=== PATIENT | female | born 1940 | race Caucasian/White ===

== ENCOUNTER 2017-01-20 07:49 | Inpatient (IN) | payer MEDICARE ==
[2017-01-20] MEDS ORDERED: VITAMIN C500 M3 PO (08:55)
[2017-01-20] MEDS ORDERED: LIPITOR20 M1 PO (08:55)
[2017-01-20] MEDS ORDERED: AZELASTINE137 MCG/01 (08:56)
[2017-01-20] MEDS ORDERED: POLYSPORIN OI28.3 GM (08:57)
[2017-01-20] MEDS ORDERED: TUMS200 MG PO (08:58)
[2017-01-20] MEDS ORDERED: BUSPIRONE HCL10 M2 PO (08:58)
[2017-01-20] MEDS ORDERED: BISACODYL5 M1 PO (08:58)
[2017-01-20] MEDS ORDERED: CELEXA10 M1 PO (08:59)
[2017-01-20] MEDS ORDERED: PARAFON FORTE500 M1 PO (08:59)
[2017-01-20] MEDS ORDERED: VITAMIN D31000 UNI3 PO (08:59)
[2017-01-20] MEDS ORDERED: COLACE100 M1 PO (09:00)
[2017-01-20] MEDS ORDERED: LANOXIN250 MC2 PO (09:00)
[2017-01-20] MEDS ORDERED: ADVAIR 25028 BLISTE1 PO (09:01)
[2017-01-20] MEDS ORDERED: LASIX40 M1 PO (09:01)
[2017-01-20] MEDS ORDERED: FLUDROCORTISON0.1 M1 (09:01)
[2017-01-20] MEDS ORDERED: SYNTHROID100 MC1 PO (09:02)
[2017-01-20] MEDS ORDERED: TOPROL XL50 M1 PO (09:02)
[2017-01-20] MEDS ORDERED: CENTRUM SILVER1 EAC4 PO (09:03)
[2017-01-20] MEDS ORDERED: MIDODRINE HCL5 M1 PO (09:03)
[2017-01-20] MEDS ORDERED: AFRIN30 ML (09:03)
[2017-01-20] MEDS ORDERED: MIRALAX17 G2 PO (09:04)
[2017-01-20] MEDS ORDERED: PROTONIX40 M2 PO (09:04)
[2017-01-20] MEDS ORDERED: METAMUCIL FIBE3.4 G1 PO (09:05)
[2017-01-20] MEDS ORDERED: POTASSIUM CHLO20 ME3 PO (09:05)
[2017-01-20] MEDS ORDERED: OCEAN104 ML (09:06)
[2017-01-20] MEDS ORDERED: ULTRAM50 M1 PO (09:06)
[2017-01-20] MEDS ORDERED: COUMADIN3 M1 PO (09:07)
[2017-01-20] MEDS ORDERED: AMBIEN10 M1 PO (09:08)
[2017-01-20] MEDS ORDERED: COUMADIN4 M1 PO (09:08)
[2017-01-20] MEDS ORDERED: LEVAQUIN500 M1 IV (09:09)
[2017-01-21 05:36] LABS: BASO % 0.3 % (0-2); EOS % 0.2 % (0-7); HCT-HEMATOCRIT 39.4 % (34.0-49.0); HGB-HEMOGLOBIN 12.8 gm/dl (12.0-15.5); IMMATURE GRANULOCYTES ABSOLUTE 0.03 tho/cmm (0-0.03); IMMATURE GRANULOCYTES PERCENT 0.2 % (0-0.3); LYMPH ABSOLUTE COUNT 1.2 tho/cmm (0.8-4.5); MCH (MEAN CORPUSCULAR HGB) 30.7 pg (28.0-32.0); MCHC MEAN CORPUSCULAR HGB CONC 32.5 % (32.0-36.0); MCV (MEAN CELL VOLUME) 94.5 fl (82.0-96.0); MEAN PLATELET VOLUME 11.2 cmc (9.4-12.4); MONO % 5.1 % (0-12); MONOCYTE ABSOLUTE COUNT 0.7 tho/cmm (0.0-1.2); NEUTROPHIL ABSOLUTE COUNT 10.9 tho/cmm (1.6-8.0); NEUTROPHIL-AUTOMATED 10.9 tho/cmm (1.6-8.0); NEUTROPHILS % 85.2 % (40-80); PLATELET COUNT 189 tho/cmm (150-450); RED BLOOD COUNT 4.17 mil/cmm (4.00-5.20); WHITE BLOOD COUNT 12.8 tho/cmm (4.0-10.0)
[2017-01-21 05:42] LABS: INR 1.3 INR (0.9-1.1); PROTHROMBIN TIME 15.4 SECONDS (9.0-13.6)
[2017-01-21 05:55] LABS: ALB/GLOB RATIO 0.9 (0.8-2.0); ALBUMIN 2.9 g/dl (3.5-5.0); ALKALINE PHOSPHATASE 96 U/L (33-138); ALT/SGPT 26 U/L (12-78); ANION GAP 12 mmol/L (0-20); AST/SGOT 31 U/L (10-40); BILIRUBIN,DIRECT 0.6 mg/dl (0.0-0.3); BILIRUBIN,INDIRECT 3.4 mg/dL (0.0-1.0); BLOOD UREA NITROGEN 13 mg/dl (6-24); CALCIUM 7.9 mg/dl (8.5-10.5); CARBON DIOXIDE-VENOUS 28 mmol/L (22-32); CHLORIDE 102 mmol/l (96-110); CREATININE 0.98 mg/dl (0.50-1.10); GLUCOSE 101 mg/dL (70-110); POTASSIUM 3.4 mmol/L (3.7-5.1); SODIUM 139 mmol/L (135-145); eGFR VALUE FOR BLACK 64 mL/Min
[2017-01-22 05:46] LABS: BASO % 0.3 % (0-2); EOS % 1.9 % (0-7); EOSINOPHIL ABSOLUTE COUNT 0.2 tho/cmm (0.0-0.7); HCT-HEMATOCRIT 37.1 % (34.0-49.0); HGB-HEMOGLOBIN 11.9 gm/dl (12.0-15.5); IMMATURE GRANULOCYTES ABSOLUTE 0.02 tho/cmm (0-0.03); IMMATURE GRANULOCYTES PERCENT 0.2 % (0-0.3); INR 1.5 INR (0.9-1.1); LYMPH % 9.2 % (20-45); LYMPH ABSOLUTE COUNT 0.9 tho/cmm (0.8-4.5); MCH (MEAN CORPUSCULAR HGB) 30.4 pg (28.0-32.0); MCHC MEAN CORPUSCULAR HGB CONC 32.1 % (32.0-36.0); MCV (MEAN CELL VOLUME) 94.9 fl (82.0-96.0); MEAN PLATELET VOLUME 11.2 cmc (9.4-12.4); MONO % 6.2 % (0-12); MONOCYTE ABSOLUTE COUNT 0.6 tho/cmm (0.0-1.2); NEUTROPHIL ABSOLUTE COUNT 8.2 tho/cmm (1.6-8.0); NEUTROPHIL-AUTOMATED 8.2 tho/cmm (1.6-8.0); NEUTROPHILS % 82.2 % (40-80); PLATELET COUNT 169 tho/cmm (150-450); PROTHROMBIN TIME 17.1 SECONDS (9.0-13.6); RED BLOOD COUNT 3.91 mil/cmm (4.00-5.20); RED CELL DISTRIBUTION WIDTH 14.3 % (12.4-16.4); WHITE BLOOD COUNT 9.9 tho/cmm (4.0-10.0)
[2017-01-22 06:06] LABS: ALB/GLOB RATIO 0.8 (0.8-2.0); ALBUMIN 2.5 g/dl (3.5-5.0); ALT/SGPT 24 U/L (12-78); ANION GAP 14 mmol/L (0-20); AST/SGOT 26 U/L (10-40); BILIRUBIN,TOTAL 3.9 mg/dl (0-1.5); BLOOD UREA NITROGEN 18 mg/dl (6-24); CALCIUM 7.7 mg/dl (8.5-10.5); CARBON DIOXIDE-VENOUS 26 mmol/L (22-32); CHLORIDE 102 mmol/l (96-110); GLUCOSE 87 mg/dL (70-110); POTASSIUM 3.5 mmol/L (3.7-5.1); SODIUM 138 mmol/L (135-145)
[2017-01-22 06:11] LABS: ALKALINE PHOSPHATASE 145 U/L (33-138); BILIRUBIN,DIRECT 1.5 mg/dl (0.0-0.3); BILIRUBIN,INDIRECT 2.4 mg/dL (0.0-1.0); eGFR VALUE FOR BLACK 46 mL/Min
--- NOTE | 2017-01-22 20:12 | NUR ---
RILEY LI NOTE-VISITED WITH PATIENT SHE LAY IN BED COMFORTABLE. SHE COULD HEAR ME BUT NOT SEE ME ON THE SCREEN. PAIN IS STAYING CONTROLLED AND WE TALKED ABOUT A FUTURE GALLBLADDER SURGERY WHEN INFECTION HAS SUBSIDED. ENC PATIENT TO REPOSITION IN BED FREQUENTLY TO PREVENT BED SORES, TO ASK FOR ASSISTANCE BEFORE GETTING UP AND TO COUGH AND DEEP BREATH. SHE HAD NO QUESTIONS OR CONCERNS. PAGED AID TO HELP HER TO THE BATHROOM
[2017-01-23 06:17] LABS: ALB/GLOB RATIO 0.7 (0.8-2.0); ALBUMIN 2.3 g/dl (3.5-5.0); ALKALINE PHOSPHATASE 196 U/L (33-138); ALT/SGPT 22 U/L (12-78); ANION GAP 13 mmol/L (0-20); AST/SGOT 26 U/L (10-40); BILIRUBIN,DIRECT 1.6 mg/dl (0.0-0.3); BILIRUBIN,INDIRECT 1.6 mg/dL (0.0-1.0); BILIRUBIN,TOTAL 3.2 mg/dl (0-1.5); BLOOD UREA NITROGEN 17 mg/dl (6-24); CALCIUM 7.7 mg/dl (8.5-10.5); CARBON DIOXIDE-VENOUS 25 mmol/L (22-32); CHLORIDE 102 mmol/l (96-110); CREATININE 1.13 mg/dl (0.50-1.10); GLUCOSE 91 mg/dL (70-110); POTASSIUM 3.6 mmol/L (3.7-5.1); SODIUM 136 mmol/L (135-145); eGFR VALUE FOR BLACK 54 mL/Min
[2017-01-23 06:18] LABS: BASO % 0.7 % (0-2); BASO ABSOLUTE COUNT 0.1 tho/cmm (0.0-0.2); EOS % 3.6 % (0-7); EOSINOPHIL ABSOLUTE COUNT 0.3 tho/cmm (0.0-0.7); HCT-HEMATOCRIT 31.8 % (34.0-49.0); HGB-HEMOGLOBIN 10.2 gm/dl (12.0-15.5); IMMATURE GRANULOCYTES ABSOLUTE 0.03 tho/cmm (0-0.03); IMMATURE GRANULOCYTES PERCENT 0.3 % (0-0.3); LYMPH % 15.6 % (20-45); LYMPH ABSOLUTE COUNT 1.4 tho/cmm (0.8-4.5); MCH (MEAN CORPUSCULAR HGB) 30.1 pg (28.0-32.0); MCHC MEAN CORPUSCULAR HGB CONC 32.1 % (32.0-36.0); MCV (MEAN CELL VOLUME) 93.8 fl (82.0-96.0); MEAN PLATELET VOLUME 11.4 cmc (9.4-12.4); MONO % 9.6 % (0-12); MONOCYTE ABSOLUTE COUNT 0.8 tho/cmm (0.0-1.2); NEUTROPHIL ABSOLUTE COUNT 6.2 tho/cmm (1.6-8.0); NEUTROPHIL-AUTOMATED 6.2 tho/cmm (1.6-8.0); NEUTROPHILS % 70.2 % (40-80); PLATELET COUNT 168 tho/cmm (150-450); RED BLOOD COUNT 3.39 mil/cmm (4.00-5.20); RED CELL DISTRIBUTION WIDTH 14.2 % (12.4-16.4); WHITE BLOOD COUNT 8.8 tho/cmm (4.0-10.0)
--- NOTE | 2017-01-23 12:00 | NUR ---
VIRTUAL CARE NOTE: PT RESTING ON BED, ENDY AT BEDSIDE. PLAN OF CARE AND DISCHARGE PLAN DISCUSSED WITH PT, QUESTIONS ANSWERED TO NGUYỄN. NGUYỄN WANTS TO TALK TO SW REGARDING UPDATE ON DISCHARGE PLAN AND FACILITY OPTIONS. VN LEFT MS FOR SW. NO FURTHER QUESTIONS AT THIS TIME.
[2017-01-24 05:58] LABS: BASO % 0.8 % (0-2); BASO ABSOLUTE COUNT 0.1 tho/cmm (0.0-0.2); EOS % 2.8 % (0-7); EOSINOPHIL ABSOLUTE COUNT 0.2 tho/cmm (0.0-0.7); HCT-HEMATOCRIT 31.8 % (34.0-49.0); HGB-HEMOGLOBIN 10.4 gm/dl (12.0-15.5); IMMATURE GRANULOCYTES ABSOLUTE 0.02 tho/cmm (0-0.03); IMMATURE GRANULOCYTES PERCENT 0.3 % (0-0.3); LYMPH % 21.2 % (20-45); LYMPH ABSOLUTE COUNT 1.3 tho/cmm (0.8-4.5); MCHC MEAN CORPUSCULAR HGB CONC 32.7 % (32.0-36.0); MCV (MEAN CELL VOLUME) 91.6 fl (82.0-96.0); MEAN PLATELET VOLUME 11.5 cmc (9.4-12.4); MONO % 10.2 % (0-12); MONOCYTE ABSOLUTE COUNT 0.6 tho/cmm (0.0-1.2); NEUTROPHILS % 64.7 % (40-80); PLATELET COUNT 203 tho/cmm (150-450); RED BLOOD COUNT 3.47 mil/cmm (4.00-5.20); RED CELL DISTRIBUTION WIDTH 13.9 % (12.4-16.4); WHITE BLOOD COUNT 6.2 tho/cmm (4.0-10.0)
[2017-01-24 06:05] LABS: ALB/GLOB RATIO 0.7 (0.8-2.0); ALBUMIN 2.5 g/dl (3.5-5.0); ALKALINE PHOSPHATASE 192 U/L (33-138); ALT/SGPT 20 U/L (12-78); ANION GAP 12 mmol/L (0-20); AST/SGOT 24 U/L (10-40); BILIRUBIN,TOTAL 1.9 mg/dl (0-1.5); BLOOD UREA NITROGEN 13 mg/dl (6-24); CALCIUM 8.4 mg/dl (8.5-10.5); CARBON DIOXIDE-VENOUS 28 mmol/L (22-32); CHLORIDE 105 mmol/l (96-110); CREATININE 0.94 mg/dl (0.50-1.10); GLUCOSE 96 mg/dL (70-110); POTASSIUM 3.2 mmol/L (3.7-5.1); SODIUM 142 mmol/L (135-145); eGFR VALUE FOR BLACK 67 mL/Min
[2017-01-24] MEDS ORDERED: CIPRO500 M2 PO (11:34)
[2017-01-24] MEDS ORDERED: FLAGYL500 M1 PO (11:34)
[2017-02-04] MEDS ORDERED: LASIX20 M1 PO (15:28)
[2017-02-04] MEDS ORDERED: BIOTENE MOIST44.3 ML MM (15:31)
[2017-02-04] MEDS ORDERED: NATURAL VEGETA283 GM PO (15:47)
[2017-02-04] MEDS ORDERED: ZOFRAN4 M2 PO (15:49)
[2017-02-04] MEDS ORDERED: MILK OF MAGNESIA PO (15:50)
[2017-02-04] MEDS ORDERED: LOVENOX80 MG/0.1 SC (15:50)
== END 2017-01-24 13:15 | DRG 445 ==
LOC: CAR1 07:49 → 5WD 01-22 16:30
PROVIDERS: Family Medicine; Physician Assistant; ADMIT Internal Medicine
PROC: 0F9430Z Drainage of Gallbladder with Drainage Device, Percutaneous Approach (ICD-10-PCS; principal; 2017-01-21)
PROC: 05HC33Z Insertion of Infusion Device into Left Basilic Vein, Percutaneous Approach (ICD-10-PCS; 2017-01-23)
DX: K81.0 Acute cholecystitis (principal); N17.9 Acute kidney failure, unspecified; I48.2 Chronic atrial fibrillation; J44.9 Chronic obstructive pulmonary disease, unspecified; I08.3 Combined rheumatic disorders of mitral, aortic and tricuspid valves; E03.9 Hypothyroidism, unspecified; E78.5 Hyperlipidemia, unspecified; Z79.01 Long term (current) use of anticoagulants; Z95.0 Presence of cardiac pacemaker; F41.9 Anxiety disorder, unspecified; F32.9 Major depressive disorder, single episode, unspecified; K82.8 Other specified diseases of gallbladder; E80.4 Gilbert syndrome
CPT/HCPCS: C1729; C1751; C1894; G0378; G8978-GO-CK; G8978-GP-CK; G8979-GO-CJ; G8979-GP-CK; G8980-GP-CK; J1650; J2185; J2270; J2405; J3010; J3370; J7030

== ENCOUNTER 2017-02-07 08:54 | Day surgery (SDC) | payer MEDICARE ==
[~2017-02-07 08:54] MED LIST: ADVAIR 25028 BLISTE1 PO; AFRIN30 ML; AMBIEN10 M1 PO; AZELASTINE137 MCG/01; BIOTENE MOIST44.3 ML MM; BISACODYL5 M1 PO; BUSPIRONE HCL10 M2 PO; CELEXA10 M1 PO; CENTRUM SILVER1 EAC4 PO; CIPRO500 M2 PO; COLACE100 M1 PO; COUMADIN3 M1 PO; COUMADIN4 M1 PO; FLAGYL500 M1 PO; FLUDROCORTISON0.1 M1; LANOXIN250 MC2 PO; LASIX20 M1 PO; LASIX40 M1 PO; LEVAQUIN500 M1 IV; LIPITOR20 M1 PO; LOVENOX80 MG/0.1 SC; METAMUCIL FIBE3.4 G1 PO; MIDODRINE HCL5 M1 PO; MILK OF MAGNESIA PO; MIRALAX17 G2 PO; NATURAL VEGETA283 GM PO; OCEAN104 ML; PARAFON FORTE500 M1 PO; POLYSPORIN OI28.3 GM; POTASSIUM CHLO20 ME3 PO; PROTONIX40 M2 PO; SYNTHROID100 MC1 PO; TOPROL XL50 M1 PO; TUMS200 MG PO; ULTRAM50 M1 PO; VITAMIN C500 M3 PO; VITAMIN D31000 UNI3 PO; ZOFRAN4 M2 PO
[2017-02-07 10:10] LABS: PROTHROMBIN TIME 11.7 SECONDS (9.0-13.6)
[2017-02-08 05:56] LABS: BASO % 0.8 % (0-2); BASO ABSOLUTE COUNT 0.1 tho/cmm (0.0-0.2); EOS % 0.2 % (0-7); HCT-HEMATOCRIT 34.9 % (34.0-49.0); HGB-HEMOGLOBIN 11.4 gm/dl (12.0-15.5); IMMATURE GRANULOCYTES ABSOLUTE 0.02 tho/cmm (0-0.03); IMMATURE GRANULOCYTES PERCENT 0.2 % (0-0.3); LYMPH % 14.9 % (20-45); LYMPH ABSOLUTE COUNT 1.3 tho/cmm (0.8-4.5); MCH (MEAN CORPUSCULAR HGB) 30.6 pg (28.0-32.0); MCHC MEAN CORPUSCULAR HGB CONC 32.7 % (32.0-36.0); MCV (MEAN CELL VOLUME) 93.6 fl (82.0-96.0); MEAN PLATELET VOLUME 9.9 cmc (9.4-12.4); MONO % 7.9 % (0-12); MONOCYTE ABSOLUTE COUNT 0.7 tho/cmm (0.0-1.2); NEUTROPHIL ABSOLUTE COUNT 6.6 tho/cmm (1.6-8.0); NEUTROPHIL-AUTOMATED 6.6 tho/cmm (1.6-8.0); PLATELET COUNT 433 tho/cmm (150-450); RED BLOOD COUNT 3.73 mil/cmm (4.00-5.20); RED CELL DISTRIBUTION WIDTH 14.4 % (12.4-16.4); WHITE BLOOD COUNT 8.7 tho/cmm (4.0-10.0)
[2017-02-08 10:03] LABS: BASO % 1.2 % (0-2); BASO ABSOLUTE COUNT 0.1 tho/cmm (0.0-0.2); EOS % 0.8 % (0-7); EOSINOPHIL ABSOLUTE COUNT 0.1 tho/cmm (0.0-0.7); HCT-HEMATOCRIT 36.5 % (34.0-49.0); HGB-HEMOGLOBIN 12.1 gm/dl (12.0-15.5); IMMATURE GRANULOCYTES ABSOLUTE 0.03 tho/cmm (0-0.03); IMMATURE GRANULOCYTES PERCENT 0.3 % (0-0.3); LYMPH % 17.4 % (20-45); LYMPH ABSOLUTE COUNT 1.8 tho/cmm (0.8-4.5); MCH (MEAN CORPUSCULAR HGB) 30.7 pg (28.0-32.0); MCHC MEAN CORPUSCULAR HGB CONC 33.2 % (32.0-36.0); MCV (MEAN CELL VOLUME) 92.6 fl (82.0-96.0); MEAN PLATELET VOLUME 9.7 cmc (9.4-12.4); MONO % 11.6 % (0-12); MONOCYTE ABSOLUTE COUNT 1.2 tho/cmm (0.0-1.2); NEUTROPHIL ABSOLUTE COUNT 7.1 tho/cmm (1.6-8.0); NEUTROPHIL-AUTOMATED 7.1 tho/cmm (1.6-8.0); NEUTROPHILS % 68.7 % (40-80); PLATELET COUNT 446 tho/cmm (150-450); RED BLOOD COUNT 3.94 mil/cmm (4.00-5.20); RED CELL DISTRIBUTION WIDTH 14.3 % (12.4-16.4); WHITE BLOOD COUNT 10.3 tho/cmm (4.0-10.0)
[2017-02-08 10:12] LABS: PROTHROMBIN TIME 11.6 SECONDS (9.0-13.6)
[2017-02-08 10:15] LABS: ANION GAP 12 mmol/L (0-20); BLOOD UREA NITROGEN 9 mg/dl (6-24); CALCIUM 9.3 mg/dl (8.5-10.5); CARBON DIOXIDE-VENOUS 29 mmol/L (22-32); CHLORIDE 97 mmol/l (96-110); CREATININE 0.79 mg/dl (0.50-1.10); GLUCOSE 98 mg/dL (70-110); POTASSIUM 4.4 mmol/L (3.7-5.1); SODIUM 134 mmol/L (135-145); eGFR VALUE FOR BLACK 83 mL/Min
[2017-02-08 10:42] LABS: ESR-ERYTHROCYTE SED RATE 35 mm/hr (0-30)
[2017-02-08 10:47] LABS: ALB/GLOB RATIO 0.9 (0.8-2.0); ALBUMIN 3.4 g/dl (3.5-5.0); ALKALINE PHOSPHATASE 105 U/L (33-138); ALT/SGPT 26 U/L (12-78); ANION GAP 13 mmol/L (0-20); AST/SGOT 44 U/L (10-40); BILIRUBIN,TOTAL 0.8 mg/dl (0-1.5); BLOOD UREA NITROGEN 10 mg/dl (6-24); CALCIUM 9.2 mg/dl (8.5-10.5); CARBON DIOXIDE-VENOUS 28 mmol/L (22-32); CHLORIDE 97 mmol/l (96-110); CHOLESTEROL 95 mg/dl (120-200); CREATININE 0.82 mg/dl (0.50-1.10); GLUCOSE 99 mg/dL (70-110); HDL CHOLESTEROL 37 mg/dl (40-60); LDL CHOLESTEROL 31 mg/dl (0-99); POTASSIUM 4.5 mmol/L (3.7-5.1); SODIUM 133 mmol/L (135-145); TRIGLYCERIDES 135 mg/dl (<149); VLDL 27 mg/dl (0-30); eGFR VALUE FOR BLACK 79 mL/Min
== END 2017-02-08 12:38 | disposition other institution (70) ==
LOC: SRG 08:54 → SHSC 09:00 → ORW 11:31 → PACU 13:18 → 5WD 15:15 → 5EB 02-08 11:10
PROVIDERS: Family Medicine; Surgery
PROC: 0FT44ZZ Resection of Gallbladder, Percutaneous Endoscopic Approach (ICD-10-PCS; principal; 2017-02-07)
DX: K81.2 Acute cholecystitis with chronic cholecystitis (principal); I63.512 Cerebral infarction due to unspecified occlusion or stenosis of left middle cerebral artery; R41.82 Altered mental status, unspecified; F80.2 Mixed receptive-expressive language disorder; I11.0 Hypertensive heart disease with heart failure; I50.9 Heart failure, unspecified; I25.10 Atherosclerotic heart disease of native coronary artery without angina pectoris; I48.91 Unspecified atrial fibrillation; M47.9 Spondylosis, unspecified; E03.9 Hypothyroidism, unspecified; F41.9 Anxiety disorder, unspecified; F32.9 Major depressive disorder, single episode, unspecified; J44.9 Chronic obstructive pulmonary disease, unspecified; K44.9 Diaphragmatic hernia without obstruction or gangrene; E78.5 Hyperlipidemia, unspecified; I08.3 Combined rheumatic disorders of mitral, aortic and tricuspid valves; Z79.01 Long term (current) use of anticoagulants; Z79.899 Other long term (current) drug therapy; Z88.0 Allergy status to penicillin; Z87.891 Personal history of nicotine dependence; Z95.0 Presence of cardiac pacemaker; Z98.890 Other specified postprocedural states
CPT/HCPCS: J1170; J1956; J2270; J2405; J2550; J3480; J7030; J7050; Q9966; Q9967